=== PATIENT | female | born 1980 | race American Indian/Alaskan Native ===

== ENCOUNTER 2018-02-15 15:40 | Emergency (ER) | payer MEDICAID ==
[2018-02-15 15:51] VITALS: BP 143/88
[2018-02-15] MEDS ORDERED: DUONEB *Not for PRN Use IH ONE (16:01)
[2018-02-15 16:23] LABS: Basophils # (Auto) 0.1 K/mm3 (0.0-0.1); Basophils % (Auto) 0.8 % (0.0-1.8); Eosinophils # (Auto) 0.1 K/mm3 (0.0-0.4); Eosinophils % (Auto) 1.1 % (0.0-4.3); Hematocrit 44.8 % (30.3-42.9); Hemoglobin 15.2 gm/dl (10.1-14.3); Lymphocytes # (Auto) 3.6 K/mm3 (1.2-5.4); Lymphocytes % (Auto) 50.1 % (13.4-35.0); Mean Corpuscular HGB Conc 34 % (30-34); Mean Corpuscular Hemoglobin 31 pg (28-32); Mean Corpuscular Volume 91 fl (79-97); Monocytes # (Auto) 0.7 K/mm3 (0.0-0.8); Monocytes % (Auto) 9.5 % (0.0-7.3); Platelet Count 252 K/mm3 (140-440); Red Blood Count 4.92 M/mm3 (3.65-5.03)
[2018-02-15 16:38] LABS: BUN/Creatinine Ratio 14; Blood Urea Nitrogen 11 mg/dL (7-17); Calcium 9.7 mg/dL (8.4-10.2); Hemolysis Index 3
--- NOTE | 2018-02-15 17:23 | XRay Report ---
FINAL REPORT EXAM: XR CHEST ROUTINE 2V HISTORY: Shortness of breath TECHNIQUE: Two view chest PA and lateral PRIORS: None. FINDINGS: Cardiac and mediastinal contours are unremarkable. No focal pulmonary infiltrate is identified. No pleural fluid collection seen. Pulmonary vasculature is unremarkable. IMPRESSION: Negative two-view chest
[2018-02-15] MEDS ORDERED: TYLENOL #3 PO ONE (18:31)
[2018-02-15] MEDS ORDERED: DELTASONE PO ONE (18:31)
--- NOTE | 2018-02-15 18:31 | Emergency Department Report ---
ED Asthma HPI - General Chief Complaint: Dyspnea/Respdistress Stated Complaint: ASTHMA Time Seen by Provider: 02/15/18 18:22 Source: patient Mode of arrival: Ambulatory Limitations: No Limitations - History of Present Illness MD Complaint: "asthma attack" -: Sudden Asthma History: history of frequent attac Severity: moderate Context: allergen exposure (occurred while cutting grass which is her normal trigger however she was without her inhaler.) Associated Symptoms: chest pain (chest tightness). denies: fever, leg edema, syncope - Related Data Current Asthma Therapy: inhaled bronchodilator Previous Rx's Medication Instructions Recorded Last Taken Type ALBUTEROL Inhaler [ProAir HFA 2 puff IH QID PRN #1 device 02/15/18 Unknown Rx Inhaler] Acetaminophen/Codeine [Tylenol 2 tab PO Q4HR PRN #16 tablet 02/15/18 Unknown Rx /Codeine # 3 tab] predniSONE [Deltasone] 3 tab PO QDAY 5 Days #15 tab 02/15/18 Unknown Rx Allergies Allergy/AdvReac Type Severity Reaction Status Date / Time clonidine AdvReac Unknown Verified 02/15/18 15:51 methylphenidate AdvReac Unknown Verified 02/15/18 15:51 [From Ritalin] ED Review of Systems ROS: Stated complaint: ASTHMA Other details as noted in HPI Comment: All other systems reviewed and negative Constitutional: denies: fever, malaise Respiratory: denies: cough Cardiovascular: denies: chest pain ED Past Medical Hx - Past Medical History Hx Hypertension: Yes Additional medical history: Hx of MT, Hx of cervial cancer. - Social History Smoking Status: Never Smoker Substance Use Type: None - Medications Home Medications: Home Medications Medication Instructions Recorded Confirmed Last Taken Type ALBUTEROL Inhaler [ProAir HFA 2 puff IH QID PRN #1 device 02/15/18 Unknown Rx Inhaler] Acetaminophen/Codeine [Tylenol 2 tab PO Q4HR PRN #16 tablet 02/15/18 Unknown Rx /Codeine # 3 tab] predniSONE [Deltasone] 3 tab PO QDAY 5 Days #15 tab 02/15/18 Unknown Rx ED Physical Exam - General Limitations: No Limitations General appearance: alert, in no apparent distress - Head Head exam: Present: atraumatic, normocephalic - Eye Eye exam: Present: normal appearance - ENT ENT exam: Present: mucous membranes moist - Neck Neck exam: Present: normal inspection. Absent: tenderness, meningismus - Respiratory Respiratory exam: Present: normal lung sounds bilaterally. Absent: respiratory distress, wheezes, rales, rhonchi - Cardiovascular Cardiovascular Exam: Present: regular rate, normal rhythm, normal heart sounds. Absent: bradycardia, tachycardia, systolic murmur, diastolic murmur, rubs, gallop - GI/Abdominal GI/Abdominal exam: Present: soft, normal bowel sounds. Absent: distended, tenderness, guarding, rebound - Extremities Exam Extremities exam: Present: normal inspection - Back Exam Back exam: Present: normal inspection - Neurological Exam Neurological exam: Present: alert, oriented X3 - Psychiatric Psychiatric exam: Present: normal affect, normal mood - Skin Skin exam: Present: warm, dry, intact, normal color. Absent: rash ED Course Vital Signs 02/15/18 15:43 Temperature 98.7 F Pulse Rate 113 H Respiratory 24 Rate Blood Pressure 143/88 O2 Sat by Pulse 99 Oximetry ED Medical Decision Making - Lab Data Result diagrams: 02/15/18 16:07 02/15/18 16:07 Laboratory Results - last 24 hr 02/15/18 02/15/18 02/15/18 16:07 16:07 16:07 WBC 7.2 RBC 4.92 Hgb 15.2 H Hct 44.8 H MCV 91 MCH 31 MCHC 34 RDW 13.0 L Plt Count 252 Lymph % (Auto) 50.1 H [place] % (Auto) 9.5 H Eos % (Auto) 1.1 Baso % (Auto) 0.8 Lymph # 3.6 [place] # 0.7 Eos # 0.1 Baso # 0.1 Seg Neutrophils % 38.5 L Seg Neutrophils # 2.8 Sodium 136 L Potassium 3.5 L Chloride 103.2 Carbon Dioxide 17 L Anion Gap 19 BUN 11 Creatinine 0.8 Estimated GFR > 60 BUN/Creatinine Ratio 14 Glucose 102 H Calcium 9.7 HCG, Qual Negative Vital Signs - 24 hr 02/15/18 15:43 Temperature 98.7 F Pulse Rate 113 H Respiratory 24 Rate Blood Pressure 143/88 O2 Sat by Pulse 99 Oximetry - EKG Data 02/15/18 18:28 NSR nl rate nl axis nl intervals no ST-T signs of ischemia no ST elevation rate 90 beats a minute no signs of pericarditis no signs of heart strain - Medical Decision Making Ms. Lux has a history of mild persistent asthma. Asthma triggered by typical trigger of grass cutting. However she did not have her inhaler. Prescribe albuterol, prednisone, Tylenol codeine. Critical care attestation.: If time is entered above; I have spent that time in minutes in the direct care of this critically ill patient, excluding procedure time. ED Disposition Clinical Impression: Acute asthma exacerbation Is pt being admited?: No Does the pt Need Aspirin: No Condition: Stable Instructions: Asthma (ED) Prescriptions: Acetaminophen/Codeine [Tylenol /Codeine # 3 tab] 2 tab PO Q4HR PRN #16 tablet PRN Reason: Pain ALBUTEROL Inhaler [ProAir HFA Inhaler] 2 puff IH QID PRN #1 device PRN Reason: Shortness Of Breath predniSONE [Deltasone] 3 tab PO QDAY 5 Days #15 tab Referrals: PRIMARY CARE, [Primary Care Provider] - 3-5 Days
== END 2018-02-15 18:42 | disposition home or self-care (01) ==
LOC: ED 15:40
DX: J45.901 Unspecified asthma with (acute) exacerbation (principal); Z88.8 Allergy status to other drugs, medicaments and biological substances; I10 Essential (primary) hypertension
CPT/HCPCS: 36415; 71046; 80048; 84703; 85025; 93005; 93010; 94640; 99284; J7512

== ENCOUNTER 2019-07-31 22:15 | Emergency (ER) | payer MEDICAID ==
[2019-07-31 22:20] VITALS: BP 128/95
[2019-07-31 23:26] LABS: Bilirubin,Urine NEG (Negative); Blood,Urine NEG (Negative); Color,Urine Straw (Yellow); Mucus,Urine FEW /HPF; Protein,Urine <15 mg/dL mg/dL (Negative); RBC,Urine < 1.0 /HPF (0.0-6.0); WBC,Urine < 1.0 /HPF (0.0-6.0)
[2019-07-31 23:28] LABS: HCG Qualitative,Urine Negative (Negative)
--- NOTE | 2019-08-01 03:31 | Emergency Department Report ---
ED Female HPI - General Chief complaint: Abdominal Pain Stated complaint: ABDOMINAL PAIN /SPOTTING Source: patient Mode of arrival: Ambulatory Limitations: No Limitations - History of Present Illness Initial comments: Patient is a 38-year-old [place]ag[place] female with past medical history of cervical cancer in remission who presents to the ED recombinant of acute onset persistent dysuria, urinary frequency and urgency, vaginal discharge with malodorous smell, suprapubic pressure for the last 1 week, worse in the last 2 days. The patient denies fever, chills, vaginal bleeding, low back pain, dyspareunia, dizziness, nausea, vomiting, diarrhea, headache, chest pain, shortness of breath, sore throat, cough, and abdominal pain. Patient states that she had an unprotected sexual intercourse about one week ago and that these symptoms started afterwards. MD Complaint: vaginal discharge, dysuria -: Sudden, days(s) (5) Location: suprapubic, other (vaginal discharge) Radiation: non-radiating Severity: moderate Severity scale (0 -10): 5 Quality: dull, aching Consistency: constant Improves with: none Worsens with: urination, intercourse Are you Now?: No Last Menstrual Period: 07/22/19 EDC: 04/27/20 Associated Symptoms: denies other symptoms, vaginal discharge, dysuria. denies: vaginal bleeding, abdominal pain, nausea/vomiting, fever/chills, headaches, loss of appetite, hematuria, rash, seizure, shortness of breath, syncope, weakness - Related Data Sexually active: Yes : 1 Para: 1 A: 1 Previous Rx's Medication Instructions Recorded Last Taken Type ALBUTEROL Inhaler (OR & NICU) 2 puff IH QID PRN #1 device 02/15/18 Unknown Rx [ProAir HFA Inhaler] Acetaminophen/Codeine [Tylenol 2 tab PO Q4HR PRN #16 tablet 02/15/18 Unknown Rx /Codeine # 3 tab] predniSONE [Deltasone] 3 tab PO QDAY 5 Days #15 tab 02/15/18 Unknown Rx Fluconazole [Diflucan TAB] 150 mg PO ONCE #1 tablet 08/01/19 Unknown Rx metroNIDAZOLE [Flagyl] 500 mg PO Q12HR #20 tab 08/01/19 Unknown Rx Allergies Allergy/AdvReac Type Severity Reaction Status Date / Time clonidine AdvReac Unknown Verified 02/15/18 15:51 methylphenidate AdvReac Unknown Verified 02/15/18 15:51 [From Ritalin] ED Review of Systems ROS: Stated complaint: ABDOMINAL PAIN /SPOTTING Other details as noted in HPI Constitutional: malaise. denies: chills, fever Eyes: denies: eye pain, eye discharge, vision change ENT: denies: ear pain, throat pain Respiratory: denies: cough, shortness of breath, wheezing Cardiovascular: denies: chest pain, palpitations Endocrine: no symptoms reported Gastrointestinal: denies: abdominal pain, nausea, diarrhea Genitourinary: urgency, dysuria, discharge, other (vaginal pain and discomfort) Musculoskeletal: denies: back pain, joint swelling, arthralgia Skin: denies: rash, lesions Neurological: denies: headache, weakness, paresthesias Psychiatric: denies: anxiety, depression Hematological/Lymphatic: denies: easy bleeding, easy bruising ED Past Medical Hx - Past Medical History Previous Medical History?: Yes Hx Hypertension: Yes Hx Heart Attack/AMI: Yes Additional medical history: Hx of cervical cancer. R sided heart failure - Surgical History Past Surgical History?: No - Social History Smoking Status: Never Smoker Substance Use Type: None - Medications Home Medications: Home Medications Medication Instructions Recorded Confirmed Last Taken Type ALBUTEROL Inhaler (OR & NICU) 2 puff IH QID PRN #1 device 02/15/18 Unknown Rx [ProAir HFA Inhaler] Acetaminophen/Codeine [Tylenol 2 tab PO Q4HR PRN #16 tablet 02/15/18 Unknown Rx /Codeine # 3 tab] predniSONE [Deltasone] 3 tab PO QDAY 5 Days #15 tab 02/15/18 Unknown Rx Fluconazole [Diflucan TAB] 150 mg PO ONCE #1 tablet 08/01/19 Unknown Rx metroNIDAZOLE [Flagyl] 500 mg PO Q12HR #20 tab 08/01/19 Unknown Rx ED Physical Exam - General Limitations: No Limitations General appearance: alert, in no apparent distress - Head Head exam: Present: atraumatic, normocephalic, normal inspection - Eye Eye exam: Present: normal appearance, PERRL, EOMI. Absent: scleral icterus, nystagmus Pupils: Present: normal accommodation - ENT ENT exam: Present: normal exam, normal orophraynx, mucous membranes moist, TM's normal bilaterally, normal external ear exam - Neck Neck exam: Present: normal inspection, full ROM - Respiratory Respiratory exam: Present: normal lung sounds bilaterally. Absent: respiratory distress, wheezes, rales, rhonchi, chest wall tenderness, decreased breath sounds, prolonged expiratory - Cardiovascular Cardiovascular Exam: Present: regular rate, normal rhythm, normal heart sounds. Absent: systolic murmur, diastolic murmur, rubs, gallop - GI/Abdominal GI/Abdominal exam: Present: soft, normal bowel sounds. 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 Absent: cervical motion tendernes, adnexal tenderness, uterine enlargement, uterine tenderness - Extremities Exam Extremities exam: Present: normal inspection, full ROM, normal capillary refill - Back Exam Back exam: Present: normal inspection, full ROM. Absent: tenderness, CVA tenderness (R), muscle spasm, paraspinal tenderness - Neurological Exam Neurological exam: Present: alert, oriented X3, CN II-XII intact, normal gait, reflexes normal - Psychiatric Psychiatric exam: Present: normal affect, normal mood - Skin Skin exam: Present: warm, dry, intact, normal color. Absent: rash ED Course Vital Signs 07/31/19 22:19 Temperature 98.5 F Pulse Rate 90 Respiratory 16 Rate Blood Pressure 128/95 O2 Sat by Pulse 93 Oximetry ED Medical Decision Making - Medical Decision Making This is a 38-year-old female who presented to the ED with, vaginal discharge, vaginal pain and discomfort, dysuria and suprapubic pressure. In the ED, patient is alert and oriented 3 and distention and distress. Urinalysis is nonactionable. Wet prep was positive for Gadnerella vaginalis but negative for Trichomonas or yeast. Patient was discharged home on Flagyl and Diflucan and patient advised to follow-up with [facility] physician in 5-7 days for reevaluation. Patient was also empirically treated for chlamydia and gonorrhea for a suspected exposure to STD. Patient was advised to follow-up with the [facility] for further STD testing. Patient was advised to return to the ED immediately if symptoms get worse. - Differential Diagnosis Bacterial vaginosis; UTI; STD; Trichomonas Critical care attestation.: If time is entered above; I have spent that time in minutes in the direct care of this critically ill patient, excluding procedure time. ED Disposition Clinical Impression: Bacterial vaginosis, Vaginal pain Disposition: TO HOME OR SELFCARE Is pt being admited?: No Does the pt Need Aspirin: No Condition: Stable Instructions: Bacterial Vaginosis (ED), Dysuria (ED) Additional Instructions: Take medications with food, drink plenty of fluids and follow up with your Primary Care Physician in 7-10 days for further evaluation. Return to the ED immediately if symptoms get worse Prescriptions: Fluconazole [Diflucan TAB] 150 mg PO ONCE #1 tablet metroNIDAZOLE [Flagyl] 500 mg PO Q12HR #20 tab Referrals: ASIF BARAJAS MD [Primary Care Provider] - 3-5 Days Forms: STI Treatment and Prevention Time of Disposition: 03:35 Print Language: ROMANIAN
== END 2019-08-01 04:12 | disposition home or self-care (01) ==
LOC: ED 22:15
DX: N76.0 Acute vaginitis (principal); I10 Essential (primary) hypertension; I21.9 Acute myocardial infarction, unspecified; Z79.899 Other long term (current) drug therapy; Z88.8 Allergy status to other drugs, medicaments and biological substances
CPT/HCPCS: 81001; 81025; 87210; 87591